=== PATIENT | female | born 2000 | race Two or more races ===

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

== ENCOUNTER 2020-02-12 12:55 | Emergency (ER) | payer MEDICAID ==
[~2020-02-12] VITALS: Ht 167.6 cm; Wt 77.1 kg
[2020-02-12 13:31] VITALS: BP 115/78
[2020-02-12] MEDS ORDERED: ACETAMINOPHEN 325 MG TAB PO ONE (14:00)
== END 2020-02-12 14:23 | disposition home or self-care (01) ==
LOC: ER 12:55 → EDBD 12:55 → ER 14:23
DX: S16.1XXA Strain of muscle, fascia and tendon at neck level, initial encounter (principal); M54.16 Radiculopathy, lumbar region; M62.838 Other muscle spasm; V43.92XA Unspecified car occupant injured in collision with other type car in traffic accident, initial encounter; Y93.89 Activity, other specified; Y92.89 Other specified places as the place of occurrence of the external cause; Y99.8 Other external cause status

== ENCOUNTER 2021-01-13 16:38 | Emergency (ER) | payer MEDICAID ==
[~2021-01-13] VITALS: Ht 162.6 cm; Wt 63.5 kg
[2021-01-13] MEDS ORDERED: NALOXONE HCL 0.4 MG/ML VIAL ONE (16:42)
[2021-01-13] MEDS ORDERED: SODIUM CHLORIDE 0.9% 1,000 ML IVB ONE (16:45)
[2021-01-13] MEDS ORDERED: NALOXONE HCL 0.4 MG/ML VIAL IV ONE (18:30)
[2021-01-13 19:01] LABS: Basophils # (auto) 0 10 ^3/uL (0-0.2); Basophils % (auto) 0.2 % (0.0-2.0); Eosinophils # (auto) 0 10 ^3/uL (0-0.8); Eosinophils % (auto) 0.1 % (0.0-7.0); Hematocrit 36.7 % (36.0-46.0); Hemoglobin 12.2 g/dL (12.2-16.2); Lymphocytes # (auto) 0.9 10 ^3/uL (0.4-5.4); Lymphocytes % (auto) 6.8 % (10.0-50.0); Mean Corpuscular Hgb Conc. 33.2 g/dL (32.0-36.0); Mean Corpuscular Volume 90.3 fL (80.0-100.0); Monocytes # (auto) 0.7 10 ^3/uL (0-1.3); Monocytes % (auto) 5.1 % (0.0-12.0); Neutrophils # (auto) 11.8 10 ^3/uL (1.6-8.6); Neutrophils % (auto) 87.8 % (37.0-80.0); Red Blood Cells 4.06 10^6/uL (4.0-5.20); Red Cell Distribution Width 13.3 % (11.8-14.3); White Blood Cell 13.4 10^3/uL (4.4-10.8)
[2021-01-13 19:20] LABS: Alanine Aminotransferase 16 U/L (13-56); Albumin 3.6 g/dL (3.4-5.0); Anion Gap 6 (5-15); Aspartate Aminotransferase 16 U/L (15-37); BUN/Creatinine Ratio 12.2; Blood Urea Nitrogen 10 mg/dL (7-18); Calcium 8.3 mg/dL (8.5-10.1); Carbon Dioxide 23 mmol/L (21-32); Chloride 107 mmol/L (98-107); GFR African American 111 mL/min; GFR Non-African American 92 mL/min; Glucose 91 mg/dL (74-106); Potassium 4.6 mmol/L (3.5-5.1); Sodium 136 mmol/L (136-145)
[2021-01-13 19:22] LABS: Alkaline Phosphatase 91 U/L (45-117); Bilirubin, Total 0.2 mg/dL (0.2-1.0); Total Protein 7.9 g/dL (6.4-8.2)
[2021-01-13 19:27] LABS: Acetaminophen < 2.0 ug/mL (10-30); Salicylate < 1.7 mg/dL (2.8-20.0)
[2021-01-13 19:55] LABS: Alcohol, Urine < 3.0 mg/dL (0-10); Amphetamine Screen, Urine NEGATIVE (NEGATIVE); Barbiturate Scree,Urine NEGATIVE (NEGATIVE); Benzodiazephine Screen, Urine NEGATIVE (NEGATIVE); Cannabinoid Screen, Urine POSITIVE (NEGATIVE); Cocaine Screen, Urine NEGATIVE (NEGATIVE)
[2021-01-13 20:01] LABS: Opiate Scree,Urine NEGATIVE (NEGATIVE); Phencyclidine Screen, Urine NEGATIVE (NEGATIVE)
[2021-01-13 20:12] VITALS: BP 104/68
== END 2021-01-13 20:27 | disposition home or self-care (01) ==
LOC: EDBD 16:38 → ER 16:38 → EDUNIT# 16:38 → ER 20:27
DX: R41.82 Altered mental status, unspecified (principal); F12.10 Cannabis abuse, uncomplicated; F17.210 Nicotine dependence, cigarettes, uncomplicated
CPT/HCPCS: 36415; 80053; 80307; 80320; 80329; 81025; 85025; 96361; 96374; 99285; J2310; J7030; 93005

== ENCOUNTER 2021-01-18 03:22 | Emergency (ER) | payer MEDICAID ==
[~2021-01-18] VITALS: Ht 162.6 cm; Wt 63.5 kg
[2021-01-18 05:30] LABS: Salicylate < 1.7 mg/dL (2.8-20.0)
[2021-01-18 05:39] LABS: Urine Bacteria MOD /hpf (None Seen); Urine Blood 3+ /uL (Negative); Urine Mucus FEW (None Seen); Urine Specific Gravity 1.019 (1.001-1.035); Urine WBC 1207 /hpf (0 - 5); Urine WBC Clumps PRESENT /hpf (None Seen)
[2021-01-18 05:41] LABS: Acetaminophen < 2.0 ug/mL (10-30)
[2021-01-18 05:51] LABS: Amphetamine Screen, Urine NEGATIVE (NEGATIVE)
[2021-01-18 06:05] LABS: Alcohol, Urine < 3.0 mg/dL (0-10); Barbiturate Scree,Urine NEGATIVE (NEGATIVE); Benzodiazephine Screen, Urine NEGATIVE (NEGATIVE); Cannabinoid Screen, Urine POSITIVE (NEGATIVE); Cocaine Screen, Urine NEGATIVE (NEGATIVE); Opiate Scree,Urine NEGATIVE (NEGATIVE); Phencyclidine Screen, Urine NEGATIVE (NEGATIVE)
[2021-01-18 07:00] VITALS: BP 119/76
== END 2021-01-18 08:14 | disposition left against medical advice (07) ==
LOC: ER 03:22
DX: Z04.41 Encounter for examination and observation following alleged adult rape (principal); T45.0X1A Poisoning by antiallergic and antiemetic drugs, accidental (unintentional), initial encounter; T39.311A Poisoning by propionic acid derivatives, accidental (unintentional), initial encounter; R10.2 Pelvic and perineal pain; N39.0 Urinary tract infection, site not specified; F17.210 Nicotine dependence, cigarettes, uncomplicated; F12.10 Cannabis abuse, uncomplicated; Z59.00 Homelessness unspecified; Y92.89 Other specified places as the place of occurrence of the external cause
CPT/HCPCS: 36415; 80307; 80320; 80329; 81001; 83735; 84702